=== PATIENT | female | born 1945 | race Caucasian/White ===

== ENCOUNTER 2019-10-17 13:48 | Outpatient (CLI) | payer MEDICARE, SELFPAY ==
[2019-10-17 14:57] LABS: Alanine Aminotransferase 56 U/L (14-59); Albumin Level 3.7 g/dL (3.4-5.0); Alkaline Phosphatase 85 U/L (46-116); Anion Gap 10.5 mmol/L (7-16); Aspartate Amino Transferase 41 U/L (15-37); Bilirubin,Total 0.3 mg/dL (0.00-1.00); Blood Urea Nitrogen 13 mg/dL (7-18); Calcium 9.2 mg/dL (8.5-10.1); Carbon Dioxide 30 mmol/L (21-32); Chloride 102 mmol/L (98-108); Estimated Glomerular Filt Rate > 60; Glucose 122 mg/dL (70-99); Magnesium 1.8 mg/dL (1.8-2.4); Osmolality Calculated 287 mOsm/kg (285-295); Potassium 4.5 mmol/L (3.5-5.1); Sodium 138 mmol/L (136-145); Total Protein 7.2 g/dL (6.4-8.2)
[2019-10-17 14:58] LABS: Thyroid Stimulating Hormone Reflex 1.39 u/IU/mL (0.36-3.74)
[2019-10-22 21:30] LABS: Vitamin D 25 Hydroxy 42 ng/mL (30-100)
== END 2019-10-17 13:49 | disposition home or self-care (01) ==
LOC: CHSLAB 13:59
PROVIDERS: PCP Family Medicine; Visit Provider Internal Medicine Endocrinology, Diabetes & Metabolism
DX: E55.9 Vitamin D deficiency, unspecified (principal); R79.0 Abnormal level of blood mineral; E03.9 Hypothyroidism, unspecified
CPT/HCPCS: 36415; 80053; 82306; 83735; 84443

== ENCOUNTER 2021-01-29 12:21 | Outpatient (CLI) | payer MEDICARE, MEDICAID, SELFPAY ==
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
== END 2021-01-29 12:22 | disposition home or self-care (01) ==
LOC: CHSIMG 12:29
PROVIDERS: PCP Family Medicine; Visit Provider Family Medicine
DX: R91.8 Other nonspecific abnormal finding of lung field (principal)
CPT/HCPCS: 71250

== ENCOUNTER 2021-02-18 14:07 | Outpatient (CLI) | payer MEDICARE, MEDICAID, SELFPAY ==
--- NOTE | ~2021-02-18 | XR_ITS ---
XR hand RT min 3V DATE: 02/18/2021 14:28 INDICATION: Right hand pain TECHNIQUE: 3 views COMPARISON: None FINDINGS: There is flattening and irregularity of the third metatarsal carpal head and some subjacent cystic change, likely due to avascular necrosis. There is secondary osteoarthritis at the third meta carpophalangeal joint. There is osteoarthritis at the distal interphalangeal joint of the second digit. No fracture, dislocation, periosteal reaction or bone destruction. Osteopenia. 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
--- NOTE | ~2021-02-18 | MM_ITS ---
EXAMINATION: MM screening [facility] BI w loretta HISTORY: Screening mammogram TECHNIQUE: Craniocaudal and mediolateral oblique 3-D tomosynthesis images were obtained and synthetic 2-D images were generated. CAD analysis was submitted and interpreted. COMPARISON: 01/24/2019, 12/15/2016, 09/18/2015 BREAST PARENCHYMAL COMPOSITION: There are scattered areas of fibroglandular density. FINDINGS: There is stable architectural distortion in the right breast site of prior excisional biops y. There is no evidence of suspicious mass, calcification, or architectural distortion to suggest mal ignancy in either breast. There has been no suspicious interval change. IMPRESSION: 1. No mammographic evidence of malignancy. 2. Recommend routine screening mammography in one year. BI-RADS Category 2: Benign finding(s). Reviewed, dictated and finalized at location A.
== END 2021-02-18 14:08 | disposition home or self-care (01) ==
LOC: CHSIMG 14:11
PROVIDERS: PCP Family Medicine; Visit Provider Family Medicine
DX: Z12.31 Encounter for screening mammogram for malignant neoplasm of breast (principal); M79.641 Pain in right hand
CPT/HCPCS: 73130; 77063; 77067

== ENCOUNTER 2021-08-03 19:36 | Emergency (ER) | payer MEDICARE, MEDICAID, SELFPAY ==
--- NOTE | ~2021-08-03 | XR_ITS ---
XR chest 2V DATE: 08/03/2021 20:11 INDICATION: Midsternal chest pressure. Occasional shortness of breath and cough for one week. TECHNIQUE: PA and lateral views COMPARISON: 01/25/2021 CT chest FINDINGS: Normal heart size. Is aortic calcification and mild unfolding. No hilar or mediastinal enla rgement. No pulmonary infiltrate or consolidation, pleural effusion or pulmonary vascular congestion or pneumothorax. Diffuse osteopenia. Status post cholecystectomy. Diffuse osteopenia. IMPRESSION: No active cardiac pulmonary disease Aortic atherosclerosis Osteopenia Reviewed, dictated and finalized at location A. MA TABLE OPERATOR
--- NOTE | 2021-08-03 19:39 | ECG_ITS ---
Measurements Intervals [place] Rate: 96 P: 41 WY: 156 QRS: 7 QRSD: 78 T: 37 QT: 338 QTc: 428 Interpretive Statements SINUS RHYTHM DELAYED PRECORDIAL R/S TRANSITION CONSIDER INFERIOR INFARCT, AGE INDETERMINATE BASELINE ARTIFACT- V5 ABNORMAL ECG Electronically Signed On 08-03-2021 19:51:17 STEEL SAMPLER by Juan Luis Patricia D.O.
[2021-08-03 19:51] VITALS: BP 154/88; PULSE 97; RESP 16; TEMP 36; O2SAT 98
[2021-08-03 20:11] LABS: Basophils Absolute Auto 0.1 K/mm3 (0.0-0.1); Basophils Percent Auto 0.4 % (0.2-1.2); Eosinophils Absolute Auto 0.2 K/mm3 (0-0.3); Eosinophils Percent Auto 1.3 % (0-4.4); Hemoglobin 11.9 g/dL (12.0-15.0); Immature Granulocyte Absolute 0.05 K/mm3 (0.00-0.031); Immature Granulocyte Percent A 0.4 % (0-0.5); Lymphocytes Absolute Auto 1.15 K/mm3 (0.9-3.2); Mean Corpuscular HGB Conc 32.2 g/dl (32-36); Mean Corpuscular Hemoglobin 25.1 pg (26-34); Mean Corpuscular Volume 78.1 fl (80-100); Mean Platelet Volume 10.9 fl (7.4-10.4); Monocytes Absolute Auto 0.5 K/mm3 (0.1-0.6); Monocytes Percent Auto 4.1 % (2.6-8.5); Neutrophils Absolute Auto 10.8 K/mm3 (1.3-6.7); Neutrophils Percent Auto 84.8 % (45.5-73.1); Platelet Count Result 207 k/mm3 (150-375); Red Blood Count 4.74 M/mm3 (4.2-5.4); Red Cell Distribution Width 14.9 % (11.5-14.5); White Blood Count 12.8 K/mm3 (4.5-10.0)
[2021-08-03 20:21] LABS: Prothrombin Time 13.4 Seconds (11.1-14.7)
[2021-08-03 20:22] LABS: Alanine Aminotransferase 21 U/L (4-35); Alkaline Phosphatase 91 U/L (38-126); Anion Gap 10 mmol/L (8-16); Aspartate Amino Transferase 27 U/L (14-36); Bilirubin,Total 0.4 mg/dL (0.2-1.3); Blood Urea Nitrogen 13 mg/dL (7-17); Carbon Dioxide 24 mmol/L (22-30); Chloride 101 mmol/L (98-107); Estimated CRCL calculation 46 ml/min; Estimated Glomerular Filt Rate > 60; Glucose 166 mg/dL (65-110); Lipase 27 U/L (23-300); Partial Thromboplastin Time 30.5 SECONDS (22.3-36.8); Potassium 4.1 mmol/L (3.4-5.0); Sodium 135 mmol/L (137-145)
[2021-08-03 20:33] LABS: Troponin I < 0.012 ng/mL (0.000-0.034)
[2021-08-03 21:31] VITALS: BP 155/65; PULSE 94; RESP 18; TEMP 37; O2SAT 97
[2021-08-04 00:11] LABS: Troponin I < 0.012 ng/mL (0.000-0.034)
[2021-08-04 00:34] VITALS: BP 137/83; PULSE 85; RESP 18; TEMP 36.6; O2SAT 97
[2021-08-04 00:35] LABS: D Dimer 0.27 ug/mL (<0.48)
[2021-08-04 02:00] LABS: Troponin I < 0.012 ng/mL (0.000-0.034)
--- NOTE | 2021-08-04 02:19 | ED.CHESTPAIN ---
HPI - Chest Pain General Chief Complaint: Chest Pain Stated Complaint: Chest pressure, swollen lymph nodes, headache Time Seen by Provider: 08/03/21 23:34 Source: RN notes reviewed History of Present Illness HPI narrative: Patient presents to emergency department from home for chest pain. Patient states that last week as she received her Covid booster she felt like her lymph nodes were swollen up into her neck she states that time she had had some chest pressure and pain up into her neck going up into her bilateral lower head she states that this is lasted for several days and she gone to her PCP and no lymph nodes are noted to be swollen and her symptoms are gradual improved she states that the symptoms returned today with pain across bilateral anterior chest into the neck feels like her lymph nodes are swollen in the base of her head she states the symptoms are worse when she takes a deep breath and resolves if she holds her breath she denies having any fevers or chills she notes mild short of breath feel like she cannot take a deep breath denies any abdominal pain Related Data Allergies Allergy/AdvReac Type Severity Reaction Status Date / Time No Known Allergies Allergy Verified 08/03/21 19:56 Review of Systems Review of Systems: Gen.: Denies fevers or chills ENT: Denies congestion feels that lymph nodes of neck are swollen Respiratory: Ports shortness of breath CV: Reports chest pain GI: Denies abdominal pain nausea, emesis or diarrhea denies burning, urgency, frequency or hematuria Musculoskeletal: Denies back pain or muscle pain Neuro: Denies numbness, tingling, weakness or focal weakness Skin: Denies rash Except as documented, all other systems reviewed and negative [facility] Past Medical History Medical History (Updated 08/04/21 @ 04:30 by Ranjit Gary DO) Diabetes mellitus Social History Social History (Updated 08/04/21 @ 02:21 by Ranjit Gary DO) Smoking status: Never smoker Exam Narrative: APPEARANCE: No acute distress, nontoxic, resting in bed EYES: EOMI HEENT: Normocephalic, atraumatic, nares patent or mucosa moist no erythema or exudate posterior pharynx airway patent tolerating own secretions voice normal Neck: Supple, no lymphadenopathy palpated, full range of motion of the neck without pain RESPIRATORY: No respiratory distress Clear to auscultation bilaterally with no rhonchi wheezing or rales. CARDIOVASCULAR: Regular rate and rhythm without murmurs rubs or gallops. Chest tender palpation of bilateral anterior chest wall pain with deep inspiration that resolves when holding breath ABDOMINAL: Soft, nontender, nondistended, no rebound or guarding MUSCULOSKELETAl: Moves all extremities. No clubbing, cyanosis or edema. NEURO: Awake and alert. Following commands, speech normal, no focal deficits SKIN:: Warm, dry. No rashes lesions or abrasions PSYCHIATRIC: Normal affect/mood, Course Course Emergency Course: Patient's states chest pain has resolved in the emergency department Discussed with Dr. Lanza for cardiology presentation work-up we discussed the atypical nature as well as 3 - troponins in ED. This time he feels patient may be discharged with follow-up as an outpatient Discussed with patient results of workup and diagnosis. Discussed need for follow-up with primary care, proper use of medication, and reasons to return to the emergency department. Patient understands and agrees to current treatment plan. Discussed with patient will test for COVID-19 as patient is noted intermittent shortness of breath with cough Vital Signs Vital signs: Vital Signs Temperature 96.8 F L 08/03/21 19:51 Pulse Rate 97 08/03/21 19:51 Respiratory Rate 16 08/03/21 19:51 Blood Pressure 154/88 H 08/03/21 19:51 Pulse Oximetry 98 08/03/21 19:51 Temperature 97.9 F 08/04/21 00:34 Pulse Rate 85 08/04/21 00:34 Respiratory Rate 18 08/04/21 00:34 Blood Pressure 137/83 08/04/21 00:34 Pulse
[2021-08-04 04:50] VITALS: BP 139/69; PULSE 77; RESP 18; O2SAT 100
[2021-08-05 03:58] LABS: SARS-CoV-2 RNA PCR Negative
== END 2021-08-04 04:51 | disposition home or self-care (01) ==
PROVIDERS: Emergency Medicine; Emergency Provider Emergency Medicine; PCP Family Medicine
DX: R07.89 Other chest pain (principal); Z20.822 Contact with and (suspected) exposure to COVID-19
CPT/HCPCS: 36415; 71046; 80053; 83690; 84484; 85025; 85380; 85610; 85730; 87081; 87804; 87880; 93005; 96365; 96366; 99284; C9803; J0131; U0003; U0005

== ENCOUNTER 2022-02-18 13:38 | Outpatient (CLI) | payer MEDICARE, MEDICAID, SELFPAY ==
--- NOTE | ~2022-02-18 | XR_ITS ---
XR knee LT 3V 02/18/2022 14:04 Indication: Left knee pain Procedure: 3 views left knee Comparison: No prior studies for comparison. Findings: No fracture, subluxation or dislocation. There is anatomic alignment. No significant joint effusion. No foreign bodies. Impression: 1: No significant bone or joint abnormality. Reviewed, dictated and finalized at location A. Impression: 1: No significant bone or joint abnormality.
== END 2022-02-18 13:39 | disposition home or self-care (01) ==
LOC: ANHIMG 13:45
PROVIDERS: PCP Family Medicine; Visit Provider Physician Assistant
DX: M25.562 Pain in left knee (principal)
CPT/HCPCS: 73562

== ENCOUNTER → 2022-04-01 14:29 | Outpatient (CLI) | payer MEDICARE, MEDICAID, SELFPAY ==
--- NOTE | ~2022-04-01 | MM_ITS ---
EXAMINATION: MM screening [facility] BI w loretta HISTORY: Screening TECHNIQUE: Craniocaudal and mediolateral oblique 3-D tomosynthesis images were obtained and synthetic 2-D images were generated. CAD analysis was submitted and interpreted. COMPARISON: Comparison to multiple prior studies sequentially, with oldest reviewed study dated 09/18. BREAST PARENCHYMAL COMPOSITION: There are scattered areas of fibroglandular density. FINDINGS: Stable architectural distortion lower inner quadrant of the right breast, consistent with p revious lumpectomy. There is no evidence of suspicious mass, calcification, or architectural distorti on to suggest malignancy in either breast. There has been no suspicious interval change. IMPRESSION: 1. No mammographic evidence of malignancy. 2. Recommend routine screening mammography in one year. BI-RADS Category 1: Negative Reviewed, dictated and finalized at location A.
--- NOTE | ~2022-04-01 | DEXA_ITS ---
Bone Density Report Name: FREDERICK HANKINS Age: 76 Sex: Female Ethnicity: White Date of : 1945 Indication: postmenopausal; screening for osteoporosis; height loss; asthma or emphysema; hysterectomy; Referring Provider: CECILIO, NATALEE Dc Study: Bone densitometry was performed. Exam Date: April 01, 2022 Accession number: [id number] Bone Density: Region BMD T-score Z-score Classification AP Spine (L1-L4) 1.015 -0.3 2.1 Normal Femoral Neck (Left) 0.721 -1.2 0.9 Osteopenia Total Hip (Left) 0.865 -0.6 1.1 Normal Femoral Neck (Right) 0.669 -1.6 0.4 Osteopenia Total Hip (Right) 0.793 -1.2 0.5 Osteopenia Total Hip Mean 0.829 -0.9 0.8 Normal World Health Organization criteria for BMD impression classify patients as: Normal (T-score at or above -1.0), Osteopenia (T-score between -1.0 and -2.5), or Osteoporosis (T-score at or below -2.5). 10-year Fracture Risk(1): Major Osteoporotic Fracture 12% Hip Fracture 2.4% Reported Risk Factors: [place] (), Neck BMD=0.669, BMI=25.9 (1) FRAX(R) Version 3.08. Fracture probability calculated for an untreated patient. Fracture probability may be lower if the patient has received treatment. Clinical Information Provided by Patient: Has used the following medications: Vitamin D, MULTI VITAMIN Has the following medical conditions: Asthma or Emphysema, Hysterectomy Patient maximum height was 64 Menopause Age: 45 No regular weight bearing exercise Drinks caffeinated beverages Onset of menses at age 14 Number of children 3 Impression: The patient has low bone mass, based on the Right Femoral Neck T-score. The patient has an estimated ten-year risk of hip fracture of 2.4% and an estimated ten-year risk of major fracture of 12%, based on the WHO FRAX algorithm. Discussion: BONE DENSITY IS LOW AT ONE OR MORE SKELETAL SITES. This patient's lowest T-score is low at one or more skeletal sites. It meets the World Health Organization's (WHO) criteria for ?low bone mass? (T-score between -1.0 and -2.5). The patient's 10-year risk of fracture as calculated by FRAX is less than the threshold where pharmacological therapy is recommended by the National Osteoporosis Foundation (NOF). However, all treatment decisions require clinical judgment and consideration of individual patient factors, including patient preferences, comorbidities, previous drug use, risk factors not captured in the FRAX model (e.g., frailty, falls, vitamin D deficiency, increased bone turnover, interval significant decline in bone density) and possible under or overestimation of fracture risk by FRAX. The patient should follow a healthful lifestyle (good nutrition with adequate calcium and vitamin D, and appropriate weight-bearing exercise). Follow-Up: Consider repeating this study in 2 to 3
== END ==
PROVIDERS: PCP Family Medicine; Visit Provider Family Medicine
DX: Z12.31 Encounter for screening mammogram for malignant neoplasm of breast (principal); Z78.0 Asymptomatic menopausal state; M85.852 Other specified disorders of bone density and structure, left thigh; M85.851 Other specified disorders of bone density and structure, right thigh
CPT/HCPCS: 77063; 77067; 77080

== ENCOUNTER 2023-05-16 15:04 | Emergency (ER) | payer MEDICARE, MEDICAID, SELFPAY ==
[2023-05-16 15:05] VITALS: BP 195/81; PULSE 95; RESP 16; TEMP 36.7; O2SAT 98
[2023-05-16 15:29] VITALS: BP 163/90; PULSE 87; RESP 23
[2023-05-16 15:32] VITALS: BP 156/64; PULSE 85; RESP 21; O2SAT 97
[2023-05-16 15:34] LABS: Appearance Urine Clear (Clear); Bilirubin Urine Negative (Negative); Blood Urine Trace-intact (Negative); Color Urine Yellow (Yellow); Glucose Urine UA Negative (Negative); Ketones Urine Negative (Negative); Leukocyte Esterase Ur 1+ LEU/UL (Negative); Nitrate Urine Negative (Negative); Protein Urine Negative (Negative); Urobilinogen Urine 0.2 mg/dL (<2.0)
[2023-05-16 15:37] LABS: Basophils Absolute Auto 0.1 K/mm3 (0.0-0.1); Basophils Percent Auto 1.3 % (0.2-1.2); Eosinophils Absolute Auto 0.2 K/mm3 (0-0.3); Eosinophils Percent Auto 3.4 % (0-4.4); Hematocrit 40.9 % (37.0-47.0); Hemoglobin 12.3 g/dL (12.0-15.0); Immature Granulocyte Absolute 0.01 K/mm3 (0.00-0.031); Immature Granulocyte Percent A 0.2 % (0-0.5); Lymphocytes Percent Auto 35.4 % (18.3-44.2); Mean Corpuscular HGB Conc 30.1 g/dl (32-36); Mean Corpuscular Hemoglobin 23.2 pg (26-34); Mean Corpuscular Volume 77.2 fl (80-100); Monocytes Absolute Auto 0.4 K/mm3 (0.1-0.6); Monocytes Percent Auto 5.6 % (2.6-8.5); Neutrophils Absolute Auto 3.4 K/mm3 (1.3-6.7); Neutrophils Percent Auto 54.1 % (45.5-73.1); Platelet Count Result 243 k/mm3 (150-375); Red Cell Distribution Width 15.5 % (11.5-14.5); White Blood Count 6.2 K/mm3 (4.5-10.0)
[2023-05-16 15:40] LABS: Alanine Aminotransferase 60 U/L (6-35); Albumin Level 4.6 g/dL (3.5-5.1); Alkaline Phosphatase 69 U/L (38-126); Anion Gap 8 mmol/L (8-16); Aspartate Amino Transferase 59 U/L (14-36); Bacteria Urine None Seen /hpf; Bilirubin,Total 0.5 mg/dL (0.2-1.3); Blood Urea Nitrogen 12 mg/dL (7-17); Calcium 8.9 mg/dL (8.4-10.2); Carbon Dioxide 28 mmol/L (22-30); Chloride 101 mmol/L (98-107); Estimated CRCL calculation 52 ml/min; Estimated Glomerular Filt Rate > 60; Glucose 149 mg/dL (65-110); Lipase 68 U/L (23-300); Non Pathogenic Casts 0-2; Potassium 4.2 mmol/L (3.4-5.0); RBC Urine 0-2 /hpf (0-2); Sodium 137 mmol/L (137-145); Squamous Epithelial Cell Urine None seen /hpf (Few)
[2023-05-16 15:44] LABS: Add Urine Microscopic? YES
[2023-05-16 15:48] VITALS: BP 168/66; PULSE 86; RESP 16; O2SAT 95
--- NOTE | 2023-05-16 15:58 | ED.WEAKNESS ---
HPI - Weakness General Chief complaint: Weakness Stated complaint: weak, tired, jaundice of sclera Time Seen by Provider: 05/16/23 15:32 Source: patient Mode of arrival: ambulatory Limitations: no limitations History of Present Illness HPI Narrative: This is a 77 year old female that presents to the ER for generalized weakness. Reports she has been experiencing generalized weakness over the last couple of days. Also reports urinary frequency. Reports constipation, that is chronic for her. Reports she felt as though her eyes looked yellow and thought she may have hepatitis. Denies fever, chest pain, shortness of breath, flank pain or vomiting. Related Data Allergies Allergy/AdvReac Type Severity Reaction Status Date / Time No Known Allergies Allergy Verified 05/16/23 15:27 Review of Systems Review of Systems: CONSTITUTIONAL: Denies fever CARDIOVASCULAR: Denies chest pain RESPIRATORY: Denies dyspnea. GASTROINTESTINAL: Denies abdominal pain, nausea, vomiting GENITOURINARY: Denies dysuria or hematuria. NEUROLOGIC: Reports generalized weakness. All systems reviewed & are unremarkable except as noted in HPI and below PMFSH Past Medical History Medical History (Updated 05/16/23 @ 16:00 by Carmen Montemayor PA-C) Diabetes mellitus Social History Social History (Updated 08/04/21 @ 02:21 by Ranjit Gary DO) Smoking status: Never smoker Exam Narrative: GENERAL: Well-appearing, well-nourished, and in no acute distress. HEAD: Normocephalic, atraumatic. EYES: EOMI. CHEST: Clear to auscultation. No respiratory distress. No wheezes rales or rhonchi HEART: Regular rate and rhythm. No murmur heard. Normal peripheral pulses. ABDOMEN: Soft, nontender, nondistended, normal active bowel sounds. EXTREMITIES: Normal range of motion. No edema. SKIN: Warm, dry, no rash. NEURO: No focal deficits. Alert and oriented x3. PSYCH: Normal mood and affect Course Course Emergency Course: Reports she would like to be discharged. She was offered further evaluation with imaging. She agrees with oral antibiotics and will return for any worsening symptoms. Vital Signs Vital signs: Vital Signs Temperature 98.0 F 05/16/23 15:05 Pulse Rate 95 05/16/23 15:05 Respiratory Rate 16 05/16/23 15:05 Blood Pressure 195/81 H 05/16/23 15:05 Pulse Oximetry 98 05/16/23 15:05 Oxygen Delivery Room Air 05/16/23 15:05 Temperature 98.0 F 05/16/23 15:05 Pulse Rate 95 05/16/23 15:05 Respiratory Rate 16 05/16/23 15:05 Blood Pressure 195/81 H 05/16/23 15:05 Pulse Oximetry 98 05/16/23 15:05 Oxygen Delivery Room Air 05/16/23 15:05 MDM - Weakness MDM Narrative Medical decision making narrative: Patient presents to the emergency department for generalized weakness. Also reporting some urinary frequency. She is afebrile and nontoxic-appearing. Blood pressure elevated upon arrival, this improved without intervention. CBC without concerning findings. Metabolic panel with mild transaminitis. Lipase is normal. UA with evidence of infection. Patient was updated on workup thus far. Reports she would like to be discharged. She was offered further evaluation with imaging. She agrees with oral antibiotics and will return for any worsening symptoms. Differential Diagnosis Differential diagnosis: Likely anemia, dehydration and other (UTI, pancreatitis, hepatitis) Lab Data Attestation: I reviewed the patient's lab results. 05/16/23 15:18 05/16/23 15:18 Labs: Lab Results 05/16/23 Range/Units 15:18 WBC 6.2 (4.5-10.0) K/mm3 RBC 5.30 (4.2-5.4) M/mm3 Hgb 12.3 (12.0-15.0) g/dL Hct 40.9 (37.0-47.0) % MCV 77.2 L (80-100) fl MCH 23.2 L (26-34) pg MCHC 30.1 L (32-36) g/dl RDW 15.5 H (11.5-14.5) % Plt Count 243 (150-375) k/mm3 MPV 11.0 H (7.4-10.4) fl Immature Gran % (Auto) 0.2 (0-0.5) % Neut % (Auto) 54.1 (45.5-73.1) % Lymph % (Auto)
[2023-05-16 16:02] VITALS: BP 152/92; PULSE 85; RESP 18; TEMP 36.8; O2SAT 98
[2023-05-16 16:04] LABS: Partial Thromboplastin Time 28.5 SECONDS (22.3-36.8); Prothrombin Time 13.1 Seconds (11.1-14.7)
== END 2023-05-16 16:10 | disposition home or self-care (01) ==
PROVIDERS: Emergency Medicine; Emergency Provider Physician Assistant; PCP Family Medicine
DX: N39.0 Urinary tract infection, site not specified (principal); E11.9 Type 2 diabetes mellitus without complications
CPT/HCPCS: 36415; 80053; 81001; 83690; 85025; 85610; 85730; 87086; 99283

== ENCOUNTER → 2023-09-09 14:02 | Outpatient (CLI) | payer MEDICARE, MEDICAID, SELFPAY ==
--- NOTE | ~2023-09-09 | MM_ITS ---
EXAMINATION: MM screening [facility] BI w loretta HISTORY: Screening TECHNIQUE: Craniocaudal and mediolateral oblique 3-D tomosynthesis images were obtained and synthetic 2-D images were generated. CAD analysis was submitted and interpreted. COMPARISON: Comparison to multiple prior studies sequentially, with oldest reviewed study dated 12/15. BREAST PARENCHYMAL COMPOSITION: Not dense: There are scattered areas of fibroglandular density. FINDINGS: There is stable architectural distortion in the medial aspect of the right breast from prev ious benign biopsy. There is no evidence of suspicious mass, calcification, or architectural distorti on to suggest malignancy in either breast. There has been no suspicious interval change. IMPRESSION: 1. No mammographic evidence of malignancy. 2. Recommend routine screening mammography in one year. BI-RADS Category 1: Negative Reviewed, dictated and finalized at location A. RONMENTAL SERVICES WORKER
== END ==
PROVIDERS: PCP Family Medicine; Visit Provider Family Medicine
DX: Z12.31 Encounter for screening mammogram for malignant neoplasm of breast (principal)
CPT/HCPCS: 77063; 77067

== ENCOUNTER 2023-10-31 13:31 | Outpatient (CLI) | payer MEDICARE, MEDICAID, SELFPAY ==
--- NOTE | 2023-10-31 | ECHO_ITS ---
Patient Info Name: Kiana Ponce Age: 78 years : 1945 Gender: Female Ht: 64 in Wt: 155 lbs BSA: 1.80 m2 HR: 77 bpm BP: 163 / 79 mmHg Heart Rhythm: Sinus Rhythm Technical Quality: Fair Exam Date: 10/31/2023 2:09 PM Exam Location: Echo Lab Patient Status: Outpatient Admit Date: 10/31/2023 Staff Ordering Physician: Vidhi, Valeria Dc MD Hoe Worker: Liza Blount RDCS Attending Provider: Andrei, Valeria Dc MD Referring Physician: Vidhi HUERTA; Exam Type: CA echo doppler color flow Study Info Indications R01.1 - Cardiac murmur, unspecified Complete two-dimensional, color flow and Doppler transthoracic echocardiogram is performed. Summary 1. Complete two-dimensional, color flow and Doppler transthoracic echocardiogram is performed. 2. Normal left ventricular size and vigorous systolic function with grade 1 diastolic noncompliance. 3. Mildly sclerotic aortic valve with trivial AI. Left Ventricle Left ventricular chamber dimension is normal. Left ventricular systolic function is normal, estimated at 65-70%. The left ventricular diastolic function is grade I diastolic dysfunction. Right Ventricle Right ventricular chamber dimension is normal. Left Atria Left atrial chamber dimension is normal. Right Atria Right atrial chamber dimension is normal. Aortic Valve The aortic valve is trileaflet. There is mild aortic valve sclerosis. There is trace aortic valve regurgitation. Pulmonic Valve The pulmonic valve is normal. Mitral Valve The mitral valve has normal leaflets. Tricuspid Valve The tricuspid valve leaflets are normal. Pericardium/Pleural The pericardium appears normal. Aorta The aortic root size at the sinus of Valsalva is normal. Left Ventricular Outflow Tract Name Value Normal LVOT 2D LVOT Diameter 1.9 cm LVOT Doppler LVOT Peak Gradient 6 mmHg LVOT Mean Gradient 3 mmHg LVOT VTI 28 cm LVOT VTI/AV VTI Ratio 0.6 LVOT Stroke Volume 80 ml LVOT CO 6.0 l/min LVOT CI 3.4 l/min/m2 Pulmonic Valve Name Value Normal PV Doppler PV Peak Gradient 4 mmHg Mitral Valve Name Value Normal MV Doppler MV Decel Preston 409 cm/s2 MV PHT 63 ms MV Area (PHT) 3.5 cm2 4.0-5.0 MV Diastolic Function MV E Peak Velocity 88 cm/s MV A Peak Velocity
== END 2023-10-31 13:32 | disposition home or self-care (01) ==
LOC: ANHCARD 13:33
PROVIDERS: PCP Family Medicine; Visit Provider Family Medicine
DX: R01.1 Cardiac murmur, unspecified (principal)
CPT/HCPCS: 93306

== ENCOUNTER 2024-01-11 14:44 | Outpatient (CLI) | payer MEDICARE, MEDICAID, SELFPAY ==
[2024-01-11 14:59] LABS: Basophils Absolute Auto 0.1 K/mm3 (0.0-0.1); Basophils Percent Auto 1.5 % (0.2-1.2); Eosinophils Absolute Auto 0.2 K/mm3 (0-0.3); Eosinophils Percent Auto 3.1 % (0-4.4); Hematocrit 35.3 % (37.0-47.0); Hemoglobin 10.4 g/dL (12.0-15.0); Immature Granulocyte Absolute 0.01 K/mm3 (0.00-0.031); Immature Granulocyte Percent A 0.2 % (0-0.5); Lymphocytes Absolute Auto 2.02 K/mm3 (0.9-3.2); Lymphocytes Percent Auto 38.7 % (18.3-44.2); Mean Corpuscular HGB Conc 29.5 g/dl (32-36); Mean Corpuscular Hemoglobin 21.5 pg (26-34); Mean Corpuscular Volume 73.1 fl (80-100); Mean Platelet Volume 10.2 fl (7.4-10.4); Monocytes Absolute Auto 0.4 K/mm3 (0.1-0.6); Monocytes Percent Auto 6.7 % (2.6-8.5); Neutrophils Absolute Auto 2.6 K/mm3 (1.3-6.7); Neutrophils Percent Auto 49.8 % (45.5-73.1); Platelet Count Result 284 k/mm3 (150-375); Red Blood Count 4.83 M/mm3 (4.2-5.4); Red Cell Distribution Width 18.1 % (11.5-14.5); White Blood Count 5.2 K/mm3 (4.5-10.0)
[2024-01-11 15:08] LABS: Platelet Estimate Adequate (Adequate); Schistocytes None Seen
[2024-01-11 15:09] LABS: Anisocytosis 1+; Hypochromasia 2+; Microcytosis 1+ (NORMAL)
[2024-01-11 16:41] LABS: Appearance Urine Turbid (Clear); Bacteria Urine 4+ /hpf; Bilirubin Urine Negative (Negative); Blood Urine 1+ (Negative); Color Urine Yellow (Yellow); Glucose Urine UA Negative (Negative); Ketones Urine Negative (Negative); Leukocyte Esterase Ur 3+ LEU/UL (Negative); Nitrate Urine Negative (Negative); Protein Urine Trace mg/dL (Negative); RBC Urine 0-2 /hpf (0-2); Squamous Epithelial Cell Urine Occasional /hpf (Few); Urobilinogen Urine 0.2 mg/dL (<2.0); WBC Urine >100 /hpf (0-3); pH Urine 5.5 (5.0-9.0)
[2024-01-11 16:44] LABS: Add Urine Microscopic? YES
[2024-01-11 17:16] LABS: Iron 29 ug/dL (37-170)
[2024-01-11 17:24] LABS: Alanine Aminotransferase 22 U/L (6-35); Albumin Level 4.2 g/dL (3.5-5.1); Alkaline Phosphatase 76 U/L (38-126); Anion Gap 7 mmol/L (4-12); Aspartate Amino Transferase 24 U/L (14-36); Bilirubin,Total 0.5 mg/dL (0.2-1.3); Blood Urea Nitrogen 21 mg/dL (7-17); Calcium 8.8 mg/dL (8.4-10.2); Carbon Dioxide 28 mmol/L (22-30); Chloride 102 mmol/L (98-107); Estimated Glomerular Filt Rate > 60; Glucose 168 mg/dL (65-110); Lactate Dehydrogenase 150 U/L (120-246); Sodium 137 mmol/L (137-145)
[2024-01-11 17:26] LABS: Percent Iron Saturation 6 % (20-50)
[2024-01-11 17:52] LABS: Ferritin 4.88 ng/mL (11.1-264)
[2024-01-11 18:34] LABS: Folic Acid > 20.0 ng/mL (2.76->20)
[2024-01-16 06:24] LABS: Methylmalonic Acid 177 nmol/L (87-318)
[2024-01-19 11:34] LABS: Soluble Transferrin Receptor 2.41 mg/L (0.76-1.76)
== END 2024-01-11 14:45 | disposition home or self-care (01) ==
LOC: ANHLAB 14:46
PROVIDERS: Nurse Practitioner Family; PCP Family Medicine; Visit Provider Internal Medicine Hematology & Oncology
DX: N39.0 Urinary tract infection, site not specified (principal); D50.8 Other iron deficiency anemias
CPT/HCPCS: 36415; 80053; 81001; 82607; 82728; 82746; 83540; 83550; 83615; 83921; 84238; 85025; 87077; 87086; 87088; 87186

== ENCOUNTER 2024-01-20 12:24 | Outpatient (CLI) | payer MEDICARE, MEDICAID, SELFPAY | END 2024-01-20 12:25 | disposition home or self-care (01) | LOC: ANHLAB 12:26 | PROVIDERS: PCP Family Medicine; Visit Provider Internal Medicine Hematology & Oncology | DX: N39.0 Urinary tract infection, site not specified (principal) | CPT/HCPCS: 87086; 87088 ==

== ENCOUNTER 2024-02-02 10:00 | Outpatient (RCR) | payer MEDICARE, MEDICAID, SELFPAY ==
[2024-01-30 09:06] VITALS: BP 144/66; PULSE 87; TEMP 36.4; O2SAT 97
[2024-01-30] MEDS: ACETAMINOPHEN 325 MG TABLET 650 MG PO (09:27)
[2024-01-30] MEDS: diphenhydrAMINE HCl INJ 50 MG/ML VIAL 25 MG IV PUSH (09:28)
[2024-01-30] MEDS: IRON SUCROSE COMPLEX 300 MG in SODIUM CHLORIDE 0.9% IV 250 ML 176.667 MG IVPB (09:41)
[2024-01-30 11:41] VITALS: BP 139/54
[2024-02-02 10:02] VITALS: BP 147/64; PULSE 82; O2SAT 98
[2024-02-02] MEDS: diphenhydrAMINE HCl INJ 50 MG/ML VIAL 25 MG IV PUSH (10:24)
[2024-02-02] MEDS: ACETAMINOPHEN 325 MG TABLET 650 MG PO (10:25)
[2024-02-02] MEDS: IRON SUCROSE COMPLEX 300 MG in SODIUM CHLORIDE 0.9% IV 250 ML 176.667 MG IVPB (10:28)
[2024-02-02 12:43] VITALS: BP 168/58
== END 2024-02-03 11:47 ==
LOC: AMCINF 10:00
PROVIDERS: PCP Family Medicine; Visit Provider Nurse Practitioner Family
DX: D50.8 Other iron deficiency anemias (principal); D50.9 Iron deficiency anemia, unspecified; I10 Essential (primary) hypertension; N39.0 Urinary tract infection, site not specified; R39.15 Urgency of urination; E03.9 Hypothyroidism, unspecified; E11.9 Type 2 diabetes mellitus without complications; E78.5 Hyperlipidemia, unspecified; K21.9 Gastro-esophageal reflux disease without esophagitis; F32.A Depression, unspecified
CPT/HCPCS: 96365; 96366; 96375; A9270; J1200; J1756; J7050